=== PATIENT | female | born 1960 | race Caucasian/White ===

== ENCOUNTER 2021-05-30 17:41 | Emergency (ER) | payer MEDICARE, OTHER ==
[~2021-05-30] VITALS: Ht 167.6 cm; Wt 69.1 kg
[2021-05-30] MEDS ORDERED: normal saline 1000ML IV soln IV ONE (18:20)
[2021-05-30] MEDS ORDERED: acetaminophen 325mg tablet PO ONE (18:30)
[2021-05-30] MEDS ORDERED: diphenhydrAMINE 25mg capsule PO ONE (18:35)
[2021-05-30] MEDS ORDERED: famotidine 10mg tablet PO SCH (18:35)
[2021-05-30] MEDS ORDERED: famotidine 20mg tablet PO ONE (18:45)
[2021-05-30 19:00] LABS: D-DIMER 1.85 MG/L FEU (0-0.50)
[2021-05-30 19:03] LABS: ALANINE AMINOTRANSFERASE 35 U/L (12-78); ALBUMIN 3.3 G/DL (3.4-5.0); ALBUMIN/GLOBULIN RATIO 1.1 (1.1-1.5); ALKALINE PHOSPHATASE 75 IU/L (46-116); ANION GAP 12 (8-16); ASPARTATE AMINO TRANSFERASE 35 U/L (10-37); BILIRUBIN,TOTAL 0.6 MG/DL (0.1-1.0); BLOOD UREA NITROGEN 15 MG/DL (7-18); BUN/CREATININE RATIO 18.1 (6.6-38.0); CALCIUM 8.5 MG/DL (8.5-10.1); CHLORIDE 105 MMOL/L (99-107); CREATININE 0.83 MG/DL (0.40-0.90); GLUCOSE 103 MG/DL (70-104); MAGNESIUM 1.9 MG/DL (1.5-2.4); POTASSIUM 3.8 MMOL/L (3.5-5.1); SODIUM 140 MMOL/L (135-145); TOTAL CARBON DIOXIDE 23.5 MMOL/L (24-32); TOTAL PROTEIN 6.4 G/DL (6.4-8.2); eGFR 70 ML/MIN
[2021-05-30] MEDS ORDERED: iohexol 350MG/ML 100ml bottle IV ONE (19:32)
[2021-05-30] MEDS ORDERED: CASIRIVIMAB/IMDEVIMAB inject. 10 ML in normal saline 100ml IV soln 100 ML IV ONE (20:10)
[2021-05-30 20:49] LABS: BASOPHILS % (AUTO) 0.3 % (0-1); EOSINOPHILS % (AUTO) 0.1 % (0-6); HEMATOCRIT 38.8 % (35.0-45.0); HEMOGLOBIN 13.5 g/dl (12.0-16.0); LYMPHOCYTES # (AUTO) 0.7 X10'3 (1.1-4.8); LYMPHOCYTES % (AUTO) 31.2 % (21-51); MEAN CORPUSCULAR HEMOGLOBIN 31.8 PG (27.0-31.0); MEAN CORPUSCULAR HGB CONC 34.8 g/dL (33.0-36.5); MEAN CORPUSCULAR VOLUME 91.3 FL (78-98); MONOCYTES # (AUTO) 0.2 X10'3 (0-0.9); MONOCYTES % (AUTO) 7.3 % (2-12); NEUTROPHILS # (AUTO) 1.4 X10'3 (1.8-7.7); NEUTROPHILS % (AUTO) 61.1 % (42-75); RED BLOOD COUNT 4.25 X10'6 (4.20-5.60)
[2021-05-30 20:50] LABS: WHITE BLOOD COUNT 2.2 X10'3 (4.5-11.0)
[2021-05-30 20:51] LABS: MEAN PLATELET VOLUME 7.7 FL (7.4-10.4); PLATELET COUNT 97 X10'3 (140-440)
[2021-05-30 20:59] LABS: PLATELET ESTIMATE DECREASED; TOTAL CELLS COUNTED 100
[2021-05-30 22:15] VITALS: BP 89/52
== END 2021-05-30 22:19 | disposition home or self-care (01) ==
LOC: ER 17:42
DX: U07.1 COVID-19 (principal); I49.5 Sick sinus syndrome; Z95.0 Presence of cardiac pacemaker; Z98.890 Other specified postprocedural states
CPT/HCPCS: 36415; 71045; 71275; 80053; 83605; 83735; 84145; 85007; 85025; 85379; 87040; 93005; 99285; J7030; M0243; Q0244; Q9967

== ENCOUNTER 2022-11-29 08:23 | Day surgery (SDC) | payer MEDICARE ==
[2022-11-29] VITALS (8 sets, daily range): BP systolic 88–111; BP diastolic 54–77
[~2022-11-29] VITALS: Ht 167.6 cm; Wt 71.2 kg
[2022-11-29] MEDS ORDERED: AMPH10TA2 PO (08:55)
[2022-11-29] MEDS ORDERED: CYAN10007 IM (08:55)
[2022-11-29] MEDS ORDERED: cefazolin 2gm/D5W 100mL 100 ML IV ONE (08:55)
[2022-11-29] MEDS ORDERED: ALPR1TAB7 PO (08:55)
[2022-11-29] MEDS ORDERED: CENO1TAB PO (08:55)
[2022-11-29] MEDS ORDERED: PROP10TA10 PO (08:55)
[2022-11-29] MEDS ORDERED: HYDR-3972 PO (08:55)
[2022-11-29] MEDS ORDERED: SUMA50TA17 PO (08:55)
[2022-11-29] MEDS ORDERED: VANCOMYCIN 1,500MG in normal saline IV soln 300 ML IV ONE (08:55)
[2022-11-29] MEDS ORDERED: LIDOCAINE 2%/EPI 1:100,000 inj. Multi-dose 20 ML VIAL ONE ×3 (09:20→12:30)
[2022-11-29] MEDS ORDERED: midazolam 1 mg/ML 2ml injection ONE ×2 (09:20→12:48)
[2022-11-29] MEDS ORDERED: vancomycin 1,000mg inj ONE (09:21)
[2022-11-29] MEDS ORDERED: fentaNYL/PF 50MCG/1 ML 2ML syringe ONE (09:21)
[2022-11-29 10:13] LABS: BASOPHILS % (AUTO) 0.9 % (0-1); EOSINOPHILS # (AUTO) 0.2 X10'3 (0-0.9); EOSINOPHILS % (AUTO) 3.8 % (0-6); HEMATOCRIT 38.6 % (35.0-45.0); HEMOGLOBIN 13.2 g/dl (12.0-16.0); LYMPHOCYTES # (AUTO) 1.7 X10'3 (1.1-4.8); LYMPHOCYTES % (AUTO) 29.7 % (21-51); MEAN CORPUSCULAR HEMOGLOBIN 30.8 PG (27.0-31.0); MEAN CORPUSCULAR HGB CONC 34.1 g/dL (33.0-36.5); MEAN CORPUSCULAR VOLUME 90.2 FL (78-98); MEAN PLATELET VOLUME 8.7 FL (7.4-10.4); MONOCYTES # (AUTO) 0.6 X10'3 (0-0.9); MONOCYTES % (AUTO) 11.5 % (2-12); NEUTROPHILS % (AUTO) 54.1 % (42-75); PLATELET COUNT 160 X10'3 (140-440); RED BLOOD COUNT 4.27 X10'6 (4.20-5.60); RED CELL DISTRIBUTION WIDTH 12.9 % (11.5-14.5); WHITE BLOOD COUNT 5.6 X10'3 (4.5-11.0)
[2022-11-29 10:23] LABS: ALBUMIN 3.3 G/DL (3.4-5.0); ANION GAP 6 (8-16); BLOOD UREA NITROGEN 18 MG/DL (7-18); BUN/CREATININE RATIO 26.5 (10.0-20.0); CALCIUM 9.4 MG/DL (8.5-10.1); CHLORIDE 107 MMOL/L (99-107); CREATININE 0.68 MG/DL (0.40-0.90); MAGNESIUM 2.2 MG/DL (1.5-2.4); SODIUM 140 MMOL/L (135-145); TOTAL CARBON DIOXIDE 27.5 MMOL/L (24-32); eGFR 87 ML/MIN
[2022-11-29 10:46] LABS: GLUCOSE 98 MG/DL (70-104); POTASSIUM 3.9 MMOL/L (3.5-5.1)
== END 2022-11-29 16:00 | disposition home or self-care (01) ==
LOC: SSTAY O 08:23
PROVIDERS: ATTEND Internal Medicine Cardiovascular Disease
DX: Z45.010 Encounter for checking and testing of cardiac pacemaker pulse generator [battery] (principal); F32.A Depression, unspecified; G40.509 Epileptic seizures related to external causes, not intractable, without status epilepticus; G43.809 Other migraine, not intractable, without status migrainosus; Z72.89 Other problems related to lifestyle; Z79.899 Other long term (current) drug therapy; Z79.01 Long term (current) use of anticoagulants
CPT/HCPCS: 33228; 36415; 80048; 83735; 85025; 85610; 93005; 99152; 99153; C1785; J0690; J2250; J3010; J3370; J7030; J7040; 33208